=== PATIENT | male | born 1995 | race Caucasian/White ===

== ENCOUNTER 2020-07-19 21:37 | Emergency (ER) | payer SELFPAY ==
[2020-07-19] MEDS ORDERED: OXYCODONE-ACETAMINOPHEN 5-325 MG TABLET PO ONE (22:32)
[2020-07-19] MEDS ORDERED: DIPH/PERTUSS(ACELL)/TETANUS VAC/PF 0.5 ML SYR (>=10YO) IM ONE (22:32)
--- NOTE | 2020-07-19 22:34 | ER Document Report ---
ED Medical Screen (RME) - General Chief Complaint: Foot Injury Stated Complaint: LEFT LEG INJURY Time Seen by Provider: 07/19/20 22:28 Notes: Patient is a 25-year-old male comes emergency room complaint of right foot and ankle injury. Patient states he was attempting to change a tire in his car today prior to coming in and he had the car checked up and was pulling off the tire the blair kicked out in the frame of the car landed on patient's left foot and ankle. Patient states it was about 15 minutes with it pinned under there until his girlfriend came out and was able to eject the car back up. He has not been able to ambulate secondary to pain and swelling of the left foot and ankle. Patient denies any other medical problems but he does state that he smokes. Physical examination: Patient is a well-nourished well-developed 25-year-old male no apparent distress on examination but very uncomfortable appearing. Cardiac: Patient is a heart rate at 100 bpm on monitor with no murmur auscultated. Lungs: Bilateral breath sounds breath sounds increased clear auscultation. Lower extremity: Examination patient's her concern is his left foot and ankle. There is moderate amount of swelling on the dorsum of the foot with 2 small abrasions on the dorsum of the foot and on the inferior portion of the tib-fib area. Patient has good 2+ dorsalis pedal pulse as well as posterior tibial pulses he has limited range of motion especially flexion extension at the ankle and foot. He can flex and extend his toes but with moderate amount of discomfort. He has good cap refill in nailbeds of the toes. I have greeted and performed a rapid initial assessment of this patient. A comprehensive ED assessment and evaluation of the patient, analysis of test results and completion of the medical decision making process will be conducted by additional ED providers. Dictation of this chart was performed using voice recognition software; therefore, there may be some unintended grammatical errors. - Related Data Allergies/Adverse Reactions: Penicillins Allergy (Verified 07/19/20 22:30) Physical Exam - Vital signs Vitals: Temp Pulse Resp BP Pulse Ox 98.3 F 100 16 131/96 H 99 07/19/20 22:13 07/19/20 22:13 07/19/20 22:13 07/19/20 22:13 07/19/20 22:13 Course - Vital Signs Vital signs: Temp Pulse Resp BP Pulse Ox 98.3 F 100 16 131/96 H 99 07/19/20 22:13 07/19/20 22:13 07/19/20 22:13 07/19/20 22:13 07/19/20 22:13
--- NOTE | 2020-07-19 23:02 | RADIOLOGY REPORT (SQ) ---
EXAM DESCRIPTION: ANKLE LEFT COMPLETE 07/19/2020 10:32 PM [facility] CLINICAL HISTORY: 25 years Male, Crush injury car frame fell on ankle; ; COMPARISON: None. FINDINGS: 3 views were obtained. Visualized osseous structures are normal in appearance. Joint spaces are well-maintained. No acute fracture or dislocation is evident. IMPRESSION: No acute osseous anomaly.
--- NOTE | 2020-07-19 23:03 | RADIOLOGY REPORT (SQ) ---
EXAM: FOOT LEFT COMPLETE CLINICAL INDICATION: 25-year-old male status post crush injury. TECHNIQUE: Three views LEFT foot were obtained in AP, lateral and oblique projections COMPARISON: None. FINDINGS: There is no fracture or dislocation. The joint spaces are preserved. No soft tissue abnormalities are seen. IMPRESSION: No acute radiographic abnormality.
--- NOTE | 2020-07-20 01:31 | ER Document Report ---
ED General - General Chief Complaint: Foot Injury Stated Complaint: LEFT LEG INJURY Time Seen by Provider: 07/19/20 22:28 Mode of Arrival: Wheelchair Information source: Patient Notes: Patient presents to the ER for evaluation of left ankle and left foot pain after catching his foot underneath a vehicle approximately 1 hour prior to arrival. According to the patient, the vehicle was on a blair stand when it fell and trapped his foot against the ground. He denies weakness or numbness. He is ambulatory without significant difficulty. He denies other injury. Nursing notes reviewed and past medical, social, and family histories reviewed and validated. TRAVEL OUTSIDE OF THE [place] IN LAST 30 DAYS: No - Related Data Allergies/Adverse Reactions: Penicillins Allergy (Verified 07/19/20 22:30) Past Medical History - General Information source: Patient - Social History Smoking Status: Current Every Day Smoker Cigarette use (# per day): Yes - 1 pack/day Chew tobacco use (# tins/day): No Smoking Education Provided: Yes Frequency of alcohol use: None Drug Abuse: None Lives with: Family Family History: None Patient has suicidal ideation: No Patient has homicidal ideation: No - Past Medical History Cardiac Medical History: Reports: None Pulmonary Medical History: Reports: None EENT Medical History: Reports: None Neurological Medical History: Reports: None Endocrine Medical History: Reports: None Renal/ Medical History: Reports: None Malignancy Medical History: Reports None GI Medical History: Reports: None Musculoskeletal Medical History: Reports None Skin Medical History: Reports None Psychiatric Medical History: Reports: None Traumatic Medical History: Reports: None Infectious Medical History: Reports: None Past Surgical History: Reports: Hx Orthopedic Surgery Review of Systems - Review of Systems Notes: Constitutional: Negative for fever. HENT: Negative for sore throat. Eyes: Negative for visual changes. Cardiovascular: Negative for chest pain. Respiratory: Negative for shortness of breath. Gastrointestinal: Negative for abdominal pain, vomiting or diarrhea. Genitourinary: Negative for dysuria. Musculoskeletal: Negative for back pain. Positive for left ankle and foot pain. Skin: Negative for rash. Neurological: Negative for headaches, weakness or numbness. 10 point ROS negative except as marked above and in HPI. Physical Exam - Vital signs Vitals: Temp Pulse Resp BP Pulse Ox 98.3 F 100 16 131/96 H 99 07/19/20 22:13 07/19/20 22:13 07/19/20 22:13 07/19/20 22:13 07/19/20 22:13 - Notes Notes: CONSTITUTIONAL: Well appearing in no acute distress SKIN: Warm, dry, and intact without rash EYES: Extraocular movements are grossly intact, clear conjunctiva HENT: Normocephalic, atraumatic, moist mucus membranes NECK: No obvious swelling, normal range of motion PULMONARY: Normal chest rise and fall, no respiratory distress or stridor CARDIOVASCULAR: Regular rate, distal extremities are warm and well perfused NEUROLOGIC: Normal speech, moves all extremities MUSCULOSKELETAL: No gross deformities. There is minor abrasion to the lateral aspect of the left ankle. There is good range of motion noted. Mild swelling noted. Pain is not out of proportion. Good distal CMS. PSYCHIATRIC: Normal mood and affect Course - Re-evaluation Re-evalutation: 07/20/20 01:30 Rechecked patient who has responded well to treatment in the ER. Discussed with patient: results, diagnosis, treatment plan, and need for follow-up. Return to the emergency department warnings were given. All questions and concerns were addressed. The plan is agreed with and understood. Patient is stable and ready for discharge. - Vital Signs Vital signs: Temp Pulse Resp BP Pulse Ox 98.3 F 100 16 131/96 H 99 07/19/20 22:13 07/19/20 22:13 07/19/20 22:13 07/19/20 22:13 07/19/20 22:13 - Laboratory Results Critical Laboratory Results Reviewed: No Critical Results - Radiology Results Critical Radiology Results Reviewed: No Critical Results Procedures - Immobilization Left Ankle Time completed: 01:27 Immobilizer type: Antonino wrap Performed by: RN Post-Proc Neuro Vasc Exam: Normal Alignment checked and good: Yes Discharge - Discharge Clinical Impression: Contusion of left ankle Qualifiers: Encounter type: initial encounter Qualified Code(s): S90.02XA - Contusion of left ankle, initial encounter Condition: Stable Disposition: HOME, SELF-CARE Instructions: Contusion ([facility])
[2020-07-20 01:47] VITALS: BP 128/92
== END 2020-07-20 01:37 | disposition home or self-care (01) ==
LOC: ER 21:37
DX: S90.02XA Contusion of left ankle, initial encounter (principal); S90.512A Abrasion, left ankle, initial encounter; M79.672 Pain in left foot; W20.8XXA Other cause of strike by thrown, projected or falling object, initial encounter; Y93.89 Activity, other specified; F17.210 Nicotine dependence, cigarettes, uncomplicated; Z88.0 Allergy status to penicillin
CPT/HCPCS: 99283